=== PATIENT | female | born 1975 | race Caucasian/White ===

== ENCOUNTER 2016-10-09 21:52 | Emergency (ER) | payer MEDICAID ==
[2016-10-09 23:35] VITALS: BP 124/67
== END 2016-10-09 23:35 | disposition home or self-care (01) ==
LOC: ED 21:52
DX: T17.228A Food in pharynx causing other injury, initial encounter (principal); X58.XXXA Exposure to other specified factors, initial encounter; Y93.89 Activity, other specified; Y92.89 Other specified places as the place of occurrence of the external cause; Y99.8 Other external cause status